=== PATIENT | male | born 1955 | race Caucasian/White ===

== ENCOUNTER 2022-11-13 06:28 | Emergency (ER) | payer MEDICARE ==
[~2022-11-13] VITALS: Ht 180.3 cm; Wt 59.0 kg
[2022-11-13 10:06] VITALS: BP 145/65
== END 2022-11-13 10:08 | disposition home or self-care (01) ==
LOC: ER 06:28
DX: T68.XXXA Hypothermia, initial encounter (principal); T73.0XXA Starvation, initial encounter; F17.210 Nicotine dependence, cigarettes, uncomplicated; T69.9XXA Effect of reduced temperature, unspecified, initial encounter
CPT/HCPCS: 99284; A9270

== ENCOUNTER 2022-11-25 23:59 | Emergency (ER) | payer OTHER ==
[~2022-11-25] VITALS: Ht 180.3 cm; Wt 63.5 kg
[2022-11-26 01:00] LABS: BASOPHILS ABSOLUTE AUTO 0.03 K/mm3 (0.00-0.23); BASOPHILS PERCENT AUTO 0 % (0-2); EOSINOPHILS ABSOLUTE AUTO 0.05 K/mm3 (0.00-0.68); EOSINOPHILS PERCENT AUTO 0 % (0-6); Hematocrit 30.7 % (37.0-53.0); Hemoglobin 10.2 g/dL (13.5-17.5); IMMATURE GRAN ABSOLUTE AUTO 0.06 K/mm3 (0.00-0.10); IMMATURE GRAN PERCENT AUTO 1 % (0-1); LYMPHOCYTES ABSOLUTE AUTO 1.21 K/mm3 (0.84-5.20); LYMPHOCYTES PERCENT AUTO 10 % (21-46); MONOCYTES ABSOLUTE AUTO 0.92 K/mm3 (0.16-1.47); MONOCYTES PERCENT AUTO 8 % (4-13); Mean Corpuscular HGB 33.1 pg (26.0-34.0); Mean Corpuscular HGB Conc 33.2 g/dL (31.5-36.5); Mean Corpuscular Volume 100 fL (80-100); Mean Platelet Volume 9.9 fL (9.1-12.4); NEUTROPHILS ABSOLUTE AUTO 9.61 K/mm3 (1.96-9.15); NEUTROPHILS PERCENT AUTO 81 % (41-73); Platelet Count 343 K/mm3 (150-400); RDW Coefficient Variation 15.1 % (11.7-14.2); Red Blood Cell Count 3.08 M/mm3 (4.30-5.90); White Blood Cell Count 11.88 K/mm3 (4.00-11.30)
[2022-11-26 01:09] LABS: Bun/Creatinine Ratio 42.2 (12.0-20.0); Calcium, Blood 8.4 mg/dL (8.5-10.1); Creatinine, Blood 0.52 mg/dL (0.60-1.20); Potassium, Blood 3.5 mmol/L (3.5-5.5)
[2022-11-26] MEDS ORDERED: ALBU90OI INH (02:15)
[2022-11-26] MEDS ORDERED: PRED20 PO (02:15)
[2022-11-26] MEDS ORDERED: DOXY100 PO (02:15)
[2022-11-26 03:00] VITALS: BP 112/82
== END 2022-11-26 08:44 | disposition home or self-care (01) ==
LOC: ER 23:59
PROVIDERS: Student in an Organized Health Care Education/Training Program
DX: L03.032 Cellulitis of left toe (principal); J44.9 Chronic obstructive pulmonary disease, unspecified; F17.210 Nicotine dependence, cigarettes, uncomplicated
CPT/HCPCS: 36415; 71046; 80048; 85025; 94640; 94664; 96374; 99284-25; A9270; J1885; J7512